=== PATIENT | male | born 1955 | race Caucasian/White ===

== ENCOUNTER 2019-05-15 14:07 | Inpatient (IN) | payer MEDICARE ==
--- NOTE | 2019-05-15 14:27 | ED ---
Neurological HPI - HPI Summary HPI Summary: This patient is a 63 year old M transferred from [place] ED presenting to [facility] with a chief complaint of frequent falls and unbalanced gait since at 1421, per triage. Pt reports 3 falls in the evening in the bathroom and trouble sitting up right. Patient reports MS (since 1997) for which he takes Tecfidera and Zoloft for and unsteady gait with many falls. Pt reports balance has worsened the last couple of days though at baseline he can walk unassisted w walker. Denies significant muscular issues due to MS. Dr. Galvan is neurologist. Denies weakness in legs but feels off balance/ataxic. - History of Current Complaint Chief Complaint: EDNeurologicalDeficit Stated Complaint: NEURO FOR MS PER EMS Time Seen by Provider: 05/15/19 14:09 Hx Obtained From: Patient Onset/Duration: Started days ago, Still Present Timing: Constant Pain Intensity: 0 Pain Scale Used: 0-10 Numeric Aggravating: Nothing Alleviating: Nothing Associated Signs and Symptoms: Positive: Unsteady Gait, Weakness - falls, trouble sitting up right; denies weakness in legs - Allergy/Home Medications Allergies/Adverse Reactions: Allergies Allergy/AdvReac Type Severity Reaction Status Date / Time haloperidol [From Haldol] Allergy See Comment Verified 05/15/19 14:23 Home Medications: Home Medications Dimethyl Fumarate(NF) [Tecfidera(NF)] 240 mg PO BID 05/15/19 [History Confirmed 05/15/19] Sertraline* [Zoloft*] 100 mg PO DAILY 05/15/19 [History Confirmed 05/15/19] PMH/Surg Hx/FS Hx/Imm Hx Endocrine/Hematology History: Denies: Hx Diabetes Cardiovascular History: Denies: Hx Hypertension, Hx Pacemaker/ICD History: Denies: Hx Dialysis, Hx Renal Disease Sensory History: Denies: Hx Hearing Aid Neurological History: Reports: Other Neuro Impairments/Disorders - MS Psychiatric History: Denies: Hx Panic Disorder - Surgical History Surgery Procedure, Year, and Place: TONSILECTOMY-as a child; APPENDECTOMY-1960s , [facility] Infectious Disease History: No Infectious Disease History: Denies: Traveled Outside the [place] in Last 30 Days - Family History Known Family History: Negative: Hypertension, Diabetes - Social History Alcohol Use: None Hx Substance Use: No Substance Use Type: Reports: None Hx Tobacco Use: No Smoking Status (MU): Never Smoked Tobacco Review of Systems Positive: Other - denies weakness in legs Neurological: Other - frequent falls, unsteady gait, trouble sitting up right All Other Systems Reviewed And Are Negative: Yes Physical Exam - Summary Physical Exam Summary: Constitutional: Well-developed, Well-nourished, Alert. (-) Distressed Skin: Warm, Dry HENT: Normocephalic; Atraumatic Eyes: Conjunctiva normal Neck: Musculoskeletal ROM normal neck. (-) JVD, (-) Nuchal rigidity Cardio: Rhythm regular, tachycardia, Heart sounds normal; Intact distal pulses; Radial pulses are 2+ and symmetric. (-) Murmur Pulmonary/Chest wall: Effort normal. (-) Respiratory distress, (-) Wheezes, (-) Rales Abd: Soft. (-) Tenderness, (-) Distension, (-) Guarding, (-) Rebound Musculoskeletal: (-) Edema Lymph: (-) Cervical adenopathy Neuro: Alert, PERRL, Oriented x3, Strength normal, Cranial nerves II-XII are grossly intact. SILT, Strength 5/5 BUE and BLE, (-) Dysmetria, (-) Nystagmus, choreiform movements, gait deferred Psych: Mood and affect Normal Triage Information Reviewed: Yes Vital Signs On Initial Exam: Initial Vitals Temp Pulse Resp BP Pulse Ox 100.0 F 107 23 139/75 96 05/15/19 14:19 05/15/19 14:19 05/15/19 14:19 05/15/19 14:19 05/15/19 14:19 Vital Signs Reviewed: Yes Procedures - Sedation Patient Received Moderate/Deep Sedation with Procedure: No Diagnostics - Vital Signs Vital Signs Temp Pulse Resp BP Pulse Ox 05/15/19 14: 100.0 F 107 23 139/75 96 - Laboratory Result Diagrams: 05/15/19 14:37 05/15/19 14:38 Lab Statement: Any lab studies that have been ordered have been reviewed, and results considered in the medical decision making process. - Radiology Brain MRI Radiology Interpretation Completed By: Radiologist Summary of Radiographic Findings: Per radiologist,. 1. DIFFUSE INVOLUTIONAL CHANGE. 2. AGAIN NOTED IS MULTIFOCAL ELEVATED T2/FLAIR SIGNAL IN THE PERIVENTRICULAR AND. SUBCORTICAL WHITE MATTER CONSISTENT WITH DEMYELINATING PLAQUE GIVEN HISTORY OF MULTIPLE. SCLEROSIS. 3. THERE IS NO ABNORMAL ENHANCEMENT TO SUGGEST ACTIVE INFLAMMATION. 4. THERE HAS BEEN NO SIGNIFICANT CHANGE COMPARED TO DECEMBER 08, 2012. ED physician has reviewed this imaging report. Re-Evaluation - Re-Evaluation First Eval Re-Evaluation Time: 16:29 Comment: Dr. Davis in ED to see patient. Course/Dx - Course Course Of Treatment: 63-year-old male history of multiple sclerosis transfer from [place] for concern for MS flare. - Per neurology, check MRI brain. Will check basic labs, give fluids for mild tachycardia and reassess. Likely to be admitted for MS flare - Diagnoses Provider Diagnoses: Exacerbation of multiple sclerosis - Physician Notifications Discussed Care Of Patient With: Dustin Davis Time Discussed With Above Provider: 14:27 Instructed by Provider To: Other - 1427: Susan: is aware of patient and recommends MRI. 1629: Susan: Dr. Santana is in ED to check in on patient. 1758: Susan: called requesting pt be given 1000 mg of solumedrol, daily for 3 days and first dose will be given in ER. Discharge ED - Sign-Out/Discharge Documenting (check all that apply): Patient Departure - admit - Discharge Plan Condition: Stable Disposition: ADMITTED TO [facility] - Billing Disposition and Condition Condition: STABLE Disposition: Admitted to [facility] - Attestation Statements Document Initiated by Sushmaibe: Yes Documenting Scribe: Maite Best Provider For Whom Becky is Documenting (Include Credential): Dr. Bony Lua MD Scribe Attestation: IMaite, scribed for Dr. Bony Lua MD on 05/16/19 at 0705. Scribe Documentation Reviewed: Yes Provider Attestation: The documentation as recorded by the Maite garcia accurately reflects the service I personally performed and the decisions made by me, Dr. Bony Lua MD Status of Scribe Document: Viewed
[2019-05-15] MEDS ORDERED: NS 0.9% 1000 ML** 1,000 ML IV ONE (14:29)
[2019-05-15 15:11] LABS: Albumin 4.3 g/dL (3.2-5.2); Albumin/Globulin Ratio 1.6 (1-3); BUN/Creatinine Ratio 13.3 (8-20); Calcium 9.1 mg/dL (8.6-10.3); EGFR African American 86.9 (>60); EGFR Non-African American 71.8 (>60); Globulin 2.7 g/dL (2-4); Potassium 3.8 mmol/L (3.5-5.0); Total Bilirubin 0.4 mg/dL (0.2-1.0)
[2019-05-15 15:25] LABS: ABS Lymphocytes 0.5 10^3/ul (1.0-4.8); ABS Monocytes 0.7 10^3/ul (0-0.8); ABS Neutrophils 6.9 10^3/ul (1.5-7.7); Eosinophil % 0.6 %; Hematocrit 42 % (42-52); Hemoglobin 14.4 g/dL (14.0-18.0); Lymphocyte % 6.3 %; Mean Corpuscular HGB Conc 34 g/dL (31-36); Mean Corpuscular Hemoglobin 30 pg (27-31); Mean Corpuscular Volume 87 fL (80-94); Mean Platelet Volume 10.6 fL (7.4-10.4); Nucleated Red Blood Cells % 0.1; Platelet Count 189 10^3/uL (150-450); Red Blood Count 4.84 10^6 /uL (4.18-5.48); Red Cell Distribution Width 14 % (10-15); White Blood Count 8.2 10^3/uL (3.5-10.8)
--- OUTSIDE RECORDS SUMMARY | 2019-05-15 15:26 | XMS REPORT | Continuity of Care Document ---
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 [phone] Care 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 [phone] Mras Galvan MD - Neurology Care 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 Problems Active Problems Provider Date Retention of urine Petra Gray MD Onset: 10/15/2013 Multiple sclerosis Petra Gray MD Onset: 05/22/2010 Constipation Petra Gray MD Onset: 05/22/2010 Anxiety state Petra Gray MD Onset: 05/22/2010 Glaucoma Petra Gray MD Onset: 08/02/2014 Vitamin D deficiency Petra Gray MD Onset: 10/17/2017 Social History Type Date Description Comments Sex Unknown Tobacco Use Start: Unknown Never Smoked Cigarettes Smoking Status Reviewed: 04/22/19 Never Smoked Cigarettes ETOH Use Denies alcohol use Tobacco Use Start: Unknown Patient has never smoked Allergies, Adverse Reactions, Alerts Active Allergies Reaction Severity Comments Date Haloperidol 07/14/2014 Haldol 10/13/2014 Medications Active Medications SIG Qnty Indications Ordering Date Provider [facility] Bacitracin apply to wound 28gm S01.00xA Petra Gray, 04/07/2019 500Unit/GM on forehead Ointment twice daily x 1 week Baclofen 1 tab by mouth 2 180tabs G35 Perta Gray, 11/12/2018 5mg Tablets times a day Acetaminophen one by mouth 60tabs Z00.00 Petra Gray, 10/20/2018 500mg every 6 hrs. as MD Tablets needed Docusate Sodium take three 100caps Petra Gray, 05/14/2018 100mg capsules by Capsules mouth every morning Claritin 1 by mouth daily 90tabs Petra Gray, 12/08/2014 10mg Tablets as needed Docqlace take three 150caps Petra Gray, 11/02/2014 100mg Capsules capsules by mouth every morning and 2 at night Fiber-Lax take 3 tablets 120tabs Petra Gray, 09/16/2014 625mg Tablets by mouth every MD day and 1 at at bedtime Baclofen take 1/2 tablet 90tabs M81.0 Petra Gray, 11/16/2013 10mg Tablets by mouth two MD times a day & 2 tablets at bedtime G35 Sertraline HCL take one tablet by 90tabs F41.9 Petra Gray MD 2011 100mg mouth every day Tablets F41.1 Tecfidera 1 po bid Unknown 240mg Capsules DR Caldwell 1PO Q Evening And A 5 135tabs Sheldon Navas MD 10mg Tablets MG AT hs Vitamin D3 take two tablets by 360tabs Petra Gray MD 1000Unit Tablets mouth every day Genteal Tears instill 1 drop into Unknown 0.1-0.3% both eyes twice daily Solution as needed for dry eye & may self-administer Ibuprofen 1 tab by mouth every Unknown 400mg Tablets 8 hour as needed pain or fever Immunizations CPT Code Status Date Vaccine Reaction Lot # [id number] Given 04/07/2019 Tdap (Adacel) Ages 7 And [id number] Above Only Q2039 Given 03/15/2019 Flu Vaccine NOS 55654 Given 03/15/2019 Influenza Virus Vaccine,Quadrivalent,Split,Pr eserv Free, 0.5mL,Im Q2035 Given 03/17/2018 Afluria Imunization Given at [facility],Rte 222 [address]66 Given 03/17/2018 Afluria Or Fluvirin Flu Vac Intramuscular Q2035 Given 03/17/2017 Afluria Imunization Given At Pharmacy, Negative, 0mm Q2037 Given 04/19/2016 Fluvirin Immunization Q2039 Given 03/24/2015 Flu Vaccine NOS 29159 Given 03/25/2014 Afluria Or Fluvirin Flu Vac Intramuscular 15761 Given 04/30/2013 Afluria Or Fluvirin Flu Vac Intramuscular 24467 Given 12/30/2012 Pneumococcal 23 Immunization Adult Or Immunosuppressed Patient 48584 Given 03/03/2012 Afluria Or Fluvirin Flu Vac VIS DATE 01/06/12 Intramuscular 33544 Given 03/29/2011 Afluria Or Fluvirin Flu Vac Intramuscular 57922 Given 05/11/2010 Afluria Or Fluvirin Flu Vac Intramuscular 46551 Given 05/09/2008 Afluria Or Fluvirin Flu Vac Intramuscular 69915 Given 04/17/2007 Afluria Or Fluvirin Flu Vac Intramuscular 05957 Given 09/26/2006 Tetanus And Diptheria Toxoid 7 Years And Older Preserv Free 35085 Given 05/01/2005 Afluria Or Fluvirin Flu Vac Intramuscular 92091 Given 05/15/2004 Afluria Or Fluvirin Flu Vac Intramuscular 26694 Given 05/17/2003 Afluria Or Fluvirin Flu Vac Intramuscular 97682 Refused 04/20/2018 Shingrix (Shingles) Zoster Vaccine HZV, Recombinant , Subunit, Adj Vital Signs Date Vital Result Comment 04/22/2019 1:21pm Weight 214.00 lb Height 70 inches 5'10" 5'10 BMI (Body Mass Index) 30.7 kg/m2 04/07/2019 9:46am Weight 212.00 lb Heart Rate 98 /min BP Systolic 124 mmHg BP Diastolic 76 mmHg Respiratory Rate 18 /min Height 70 inches 5'10" 5'10 O2 % BldC Oximetry 99 % Ra BMI (Body Mass Index) 30.4 kg/m2 Results Test Date Facility Test Result H/L Range Note CBS 04/14/2019 [facility] White Blood 4.7 K/uL Normal 3.4-10.5 1 W/Automated (315)- - Count Diff Red Blood Count 4.93 M/uL Normal 4.20-5.80 Hemoglobin 14.4 gm/dL Normal 12.8-17.0 Hematocrit 43.3 % Normal 38.0-48.0 Mean Cell Volume 87.8 fl Normal 80.0-96.0 Mean Corpuscular HGB 29.2 pg Normal 27.0-33.0 Mean Corpuscular HGB Conc 33.3 g/dL Normal 31.7-36.0 Platelet Count 220 K/uL Normal 155-360 Red Cell Distri Width SD 41.9 fl Normal 36-51 Red Cell Distri Width %CV 13.1 % Normal 11.6-15.8 Mean Platelet Volume 12.5 fl High 6.6-10.6 Neut% 69.7 % Normal 33.0-73.0 Lymph % 15.6 % Low 20.0-42.0 Pecos % 8.8 % Normal 0.0-10.0 Eo% 5.1 % Normal 0.0-6.6 Bas% 0.6 % Normal 0.0-1.1 Immature Grans 0.2 % Normal 0.0-5.0 NRBC % 0.0 /100WBC < 10/ 100 WBC Neut# 3.25 K/uL Normal 1.8-7.0 Lymph # 0.73 K/uL Low 1.0-4.0 Pecos # 0.41 K/uL Normal 0.0-0.8 Eos # 0.24 K/uL Normal 0.0-0.5 Baso # 0.03 K/uL Normal 0.0-0.1 Immature Grans Absolute 0.01 K/uL NRBC # 0.00 K/uL [facility] 04/14/2019 [facility] Glucose 100 mg/dL Normal 74-106 Metabolic Panel (315)- - BUN 14 mg/dL Normal 7-18 Creatinine 1.0 mg/dL Normal 0.6-1.3 Glom Filtration Rate, Estimate >60 mL/min >60 If >60 mL/min >60 2 BUN/Creat 14.0 ratio Sodium 139 mmol/L Normal 136-145 Potassium 4.1 mmol/L Normal 3.5-5.1 Chloride 108 mmol/L High 98-107 Carbon Dioxide 26 mmol/L Normal 21-32 Anion Gap 5 mEq/L Low 8-16 Calcium 8.9 mg/dL Normal 8.5-10.1 Total Protein 7.5 g/dL Normal 6.4-8.2 Albumin 4.1 g/dL Normal 3.4-5.0 Globulin 3.4 g/dL Normal 1.9-4.3 Alb/Glob 1.2 ratio Bilirubin,Total 0.4 mg/dL Normal 0.2-1.0 Sgot/Ast 13 U/L Low 15-37 3 SGPT/Alt 36 U/L Normal 12-78 Alkaline Phosphatase 54 U/L Normal 45-117 LDL Cholesterol 04/14/2019 [facility] Cholesterol 174 mg/ dL <200 4 Profile (315)- - Triglycerides 126 mg/dL <150 5 HDL Cholesterol 42 mg/dL >40 6 LDL-Cholesterol 107 mg/dL < 100 7 Laboratory test 04/14/2019 [facility] Thyroid Stim 3.04 uIU/mL Normal 0.30-4.20 finding (315)- - Hormone Laboratory test 04/14/2019 [facility] Vitamin 39.9 ng/mL 30.0-100.0 8 finding (315)- - D,25-Hydroxy 1 F41.1 2 Note: Persistent reduction for 3 months or more in an eGFR <60 mL/min/1.73 m2 defines CKD. Patients with eGFR values >/=60 mL/min/1.73 m2 may also have CKD if evidence of persistent proteinuria is present. The original MDRD equation for estimated GFR is not valid for patients less than 18 years of age. Additional information may be found at www.kdoqi.org. 3 Values below the stated reference ranges of AST and ALT can be seen in normal populations. Clinical correlation is suggested. 4 Reference Guidelines*: Desirable: ........... < 200 mg/dL Borderline High: ..... 200-239 mg/dL High: ................ >= 240 mg/dL * The National Cholesterol Education Program (NCEP) 5 Reference Guidelines*: Normal: ............. < 150 mg/dL Borderline High: .... 150-199 mg/dL High: ............... 200-499 mg/dL Very High: .......... > 500 mg/dL * Source: National Cholesterol Education Program (NCEP) 6 Reference Guidelines*: Low HDL: ..... < 40 mg/dL Normal: ..... 40-60 mg/dL Desirable: ... > 60 mg/dL *The National Cholesterol Education Program(NCEP) 7 Reference Guidelines*: Optimal:........... <100 mg/dL Near Optimal....... 100-129 mg/dL Borderline High.... 130-159 mg/dL High............... 160-189 mg/dL Very High.......... >=190 mg/dL * Source: National Cholesterol Education Program (NCEP) 8 Vitamin D deficiency has been defined by the [place] of [employer] and an Endocrine Society practice guideline as a level of serum 25-OH vitamin D less than 20 ng/mL (1,2). The Endocrine Society went on to further define vitamin D insufficiency as a level between 21 and 29 ng/mL (2). 1. IOM ([place] of [employer]). 2010. Dietary reference intakes for calcium and D. [place]: The National Academies Press. 2. Ingris MF, Flynn PATTERSON, Matthew JUNG, et al. Evaluation, treatment, and prevention of vitamin D deficiency: an Endocrine Society clinical practice guideline. JCEM. 2010; 96(7):1911-30. Performed at: RN - [facility] [address] [id number] Coding Support Specialist: Alana Diallo MD, Phone: [phone] Procedures Date Code Description Status 11/06/2017 80004408 Colonoscopy Completed Medical Devices Description No Information Available Encounters Type Date Location Provider Dx Diagnosis Office Visit 04[facility] Pet[facility] MD S01.00xA Unspecified open 9:45a wound of scalp, initial encounter Z23 Encounter for immunization Assessments Date Code Description Provider 04/22/2019 E66.9 Obesity, unspecified Petra Gray MD 04/22/2019 G35 Multiple sclerosis Petra Gray MD 04/22/2019 R33.9 Retention of urine, unspecified Petra Gray MD 04/22/2019 K59.00 Constipation, unspecified Petra Gray MD 04/22/2019 F41.1 Generalized anxiety disorder Petra Gray MD 04/22/2019 H40.9 Unspecified glaucoma Petra Gray MD 04/22/2019 E55.9 Vitamin D deficiency, unspecified Petra Gray MD 04/22/2019 Z68.30 Body mass index (BMI) 30.0-30.9, adult Petra Gray MD 04/07/2019 S01.00xA Unspecified open wound of scalp, initial Petra Gray MD encounter 04/07/2019 Z23 Encounter for immunization Petra Gray MD Plan of Treatment Future Appointment(s):10/26/2019 2:30 pm - [facility] - Petra Gray MDE66.9 Obesity, unspecifiedComments:encourage healthy moderate diet and exercise.G35 Multiple sclerosisComments:Dr. Galvan is following this. Continue current medicationFollow up:6-months MEDICARE WELLNESS EXAM and follow up with non-fasting labs prior.R33.9 Retention of urine , unspecifiedNew Labs:Prostate Specific Antigen, Scheduled: 10/17/19Comments:He self-catheterizes 4 times daily.K59.00 Constipation, unspecifiedComments:No problem at this time. Continue current medication.F41.1 Generalized anxiety disorderComments:This is well controlled with the use of sertraline with benefit. Continue with this.H40.9 Unspecified glaucomaComments:Dr. Bowen is watching his pressure. She does not think he is having any symptoms at this time.E55.9 Vitamin D deficiency, unspecifiedComments:continue obfxklsrovJ77.30 Body mass index (BMI) 30.0-30.9, adultComments:The BMI is the ratio of height to weight. Weight loss is desirable. Your goal BMI is between 18.9 and 25. Your are overweight. Work on improving your diet to help with weight loss. Functional Status Functional Condition Comment Date Status Independent with all ADL's Active Dependent with housekeeping Active Mental Status Description No Information Available Referrals Description No Information Available
--- OUTSIDE RECORDS SUMMARY | 2019-05-15 15:26 | XMS REPORT | Continuity of Care Document ---
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 as MD Tablets needed Docusate Sodium Take Three 100caps Petra Gray, 05/14/2018 100mg Capsules By MD Capsules Mouth Every Morning Claritin 1 by mouth daily 90tabs Petra Gray, 12/08/2014 10mg Tablets as needed Docqlace take three 150caps Petra Gray, 11/02/2014 100mg Capsules capsules by mouth every morning and 2 at night Fiber-Lax take 3 tablets 120tabs Petra Gray, 09/16/2014 625mg Tablets by mouth every MD day and 1 at at bedtime Baclofen Take 1/2 Tablet 90tabs M81.0 Petra Gray, 11/16/2013 10mg Tablets By Mouth Two MD Times A Day & 2 Tablets AT Bedtime G35 Sertraline HCL take one tablet by 30tabs Petra Gray MD 03/20/2012 100mg Tablets mouth every day Tecfidera 1 po bid Unknown 240mg Capsules [...] Code Status Date Vaccine Reaction Lot # [id number] Given 04/07/2019 Tdap (Adacel) Ages 7 And [id number] Above Only Q2039 Given 03/15/2019 Flu Vaccine NOS 57029 Given 03/15/2019 Influenza Virus Vaccine,Quadrivalent,Split,Pr eserv Free, 0.5mL,Im Q2035 Given 03/17/2018 Afluria Imunization Given at [facility],Rte 222 [address] Given 03/17/2018 Afluria Or Fluvirin Flu Vac Intramuscular Q2035 Given 03/17/2017 Afluria Imunization Given At Pharmacy, Negative, 0mm Q2037 Given 04/19/2016 Fluvirin Immunization Q2039 Given 03/24/2015 Flu Vaccine NOS 13621 Given 03/25/2014 Afluria Or Fluvirin Flu Vac Intramuscular 63417 Given 04/30/2013 Afluria Or Fluvirin Flu Vac Intramuscular 41648 Given 12/30/2012 Pneumococcal 23 Immunization Adult Or Immunosuppressed Patient 15964 Given 03/03/2012 Afluria Or Fluvirin Flu Vac VIS DATE 01/06/12 Intramuscular 61773 Given 03/29/2011 Afluria Or Fluvirin Flu Vac Intramuscular 12271 Given 05/11/2010 Afluria Or Fluvirin Flu Vac Intramuscular 16083 Given 05/09/2008 Afluria Or Fluvirin Flu Vac Intramuscular 14952 Given 04/17/2007 Afluria Or Fluvirin Flu Vac Intramuscular 13858 Given 09/26/2006 Tetanus And Diptheria Toxoids For Adult Use-preservative free 98261 Given 05/01/2005 Afluria Or Fluvirin Flu Vac Intramuscular 65946 Given 05/15/2004 Afluria Or Fluvirin Flu Vac Intramuscular 36092 Given 05/17/2003 Afluria Or Fluvirin Flu Vac Intramuscular 38499 Refused 04/20/2018 Shingrix (Shingles) Zoster Vaccine HZV, Recombinant , Subunit, Adj Vital Signs Date Vital Result Comment 04/07/2019 9:46am Weight 212.00 lb Heart Rate 98 /min BP Systolic 124 mmHg BP Diastolic 76 mmHg Respiratory Rate 18 /min Height 70 inches 5'10" 5'10 O2 % BldC Oximetry 99 % Ra BMI (Body Mass Index) 30.4 kg/m2 10/20/2018 1:48pm Weight 221.00 lb Heart Rate 72 /min BP Systolic 126 mmHg BP Diastolic 72 mmHg Respiratory Rate 18 /min Height 70 inches 5'10" 5'10 O2 % BldC Oximetry 97 % Ra BMI (Body Mass Index) 31.7 kg/m2 Results Description No Information Available Procedures Date Code Description Status 11/06/2017 23560900 Colonoscopy Completed Medical Devices Description No Information Available Encounters Type Date Location Provider Dx Diagnosis Office Visit 10/20/2018 1:30p [facility] Pet[facility] MD E66.9 Obesity, unspecified Z00.00 Encntr for general adult medical exam w/o abnormal findings Z13.31 Encounter for screening for depression G35 Multiple sclerosis R33.9 Retention of urine, unspecified K59.00 Constipation, unspecified F41.1 Generalized anxiety disorder H40.9 Unspecified glaucoma E55.9 Vitamin D deficiency, unspecified Z68.31 Body mass index (BMI) 31.0-31.9, adult Assessments Date Code Description Provider 04/07/2019 S01.00xA Unspecified open wound of scalp, initial Petra Gray MD encounter 04/07/2019 Z23 Encounter for immunization Petra Gray MD 10/20/2018 E66.9 Obesity, unspecified Petra Gray MD 10/20/2018 Z00.00 Encounter for general adult medical Petra Gray MD examination without abno 10/20/2018 Z13.31 Encounter for screening for depression Petra Gray MD 10/20/2018 G35 Multiple sclerosis Petra Gray MD 10/20/2018 R33.9 Retention of urine, unspecified Petra Gray MD 10/20/2018 K59.00 Constipation, unspecified Petra Gray MD 10/20/2018 F41.1 Generalized anxiety disorder Petra Gray MD 10/20/2018 H40.9 Unspecified glaucoma Petra Gray MD 10/20/2018 E55.9 Vitamin D deficiency, unspecified Petra Gray MD 10/20/2018 Z68.31 Body mass index (BMI) 31.0-31.9, adult Petra Gray MD Plan of Treatment Future Appointment(s):04/22/2019 1:15 pm - [facility] - Petra Gray MDS01.00xA Unspecified open wound of scalp, initial encounterNew Medication:[facility] Bac[facility] 500 Unit/GM - apply to wound on forehead twice daily x 1 weekComments:suspect minor trauma to skin. He will apply bacitracin ointment to wound on forehead twice a day for 1 week. given tetanus shot today. call if not improving or if symptoms worsen.Follow up:Follow up as scheduled.Z23 Encounter for immunization Functional Status Functional Condition Comment Date Status Independent with all ADL's Active Dependent with housekeeping Active Mental Status Description No Information Available Referrals Description No Information Available
[2019-05-15] MEDS ORDERED: Gadoteridol* (CONTRAST) 279.3 MG/ML 10 ML IV ONE (15:59)
[2019-05-15] MEDS ORDERED: methylPREDNISolone SOD SUCC* 1,000 MG in NS 0.9% 100 ML* 100 ML IVPB ONE (17:52)
[2019-05-15] MEDS ORDERED: methylPREDNISolone SOD SUCC* 1000 MG ML VIAL ONE (18:27)
--- NOTE | 2019-05-15 19:30 | CONS ---
CONSULTATION REPORT: DATE OF CONSULT: 05/15/19 PATIENT OF: Dr. Petra Gray and Dr. Mars Galvan. HISTORY OF PRESENT ILLNESS: This is a 63-year-old man with longstanding multiple sclerosis first diagnosed by Dr. Slaughter in 1991. He has transverse myelitis and received intravenous steroids early on in his course and he had an MRI scan, which made a positive diagnosis. He was initially on Avonex and switched to Rebif and then to Tecfidera in 2013 and he has been on Tecfidera since then and he has clinically done well. He has no recent relapses for many years. He uses a walker and he says that due to his instability falls roughly twice a year. He has become significantly more ataxic including with titubation and having difficulty sitting in the past 3 days' time. He has fallen 2 or 3 times in the past 3 days. His speech is typically mildly slurred , but it is more slurred than before. He has had no headaches. No visual symptoms. No fevers. I reviewed Dr. Galvan's note from May 2018. At that time, he had bilateral INOs as well as ataxia and brisk reflexes and was able to walk with a walker. Of note, no JCV antibody testing has been done on this man. His last MRI scan was done in 2012 prior to today. He has had no new numbness either. PAST MEDICAL HISTORY: He has a history of depression. PAST SURGICAL HISTORY: He is status post tonsillectomy, adenoidectomy. MEDICATIONS: Include: 1. Zoloft 100 mg daily. 2. Tecfidera 240 b.i.d. There are no other medications. ALLERGIES: He is allergic to HALOPERIDOL. SOCIAL HISTORY: He does not smoke or drink. PHYSICAL EXAM: Temperature 100, pulse 107, respirations 20, blood pressure 129/ 73. He is alert and oriented with slurred speech, but no aphasia. Cranial nerves II through XII showed bilateral internuclear ophthalmoplegia. Facies symmetric. Strength was 5/5 other than 5-/5 in the dorsiflexion and plantarflexion of the left leg. He says his strength is unchanged. He has bilateral past-pointing, bilateral ataxia in both legs. He says that this is clearly worse. He has titubation and has difficulty sitting up and when we got him to stand using a walker he still needed 2-person assist to prevent him from falling. He has diffuse spasticity. Reflexes were 3+ and equal. Toes were equivocal. Sensation intact to light touch. Chest: Clear. Cardiovascular: Regular rate and rhythm. Abdomen is soft with positive bowel sounds. DIAGNOSTIC STUDIES/LAB DATA: CBC showed a white count of 8.2, but total lymphocyte count is just 0.5. Other testing was normal. His CMP was normal other than glucose of 102. His MRI scan which we obtained today showed no new white matter disease and has a pattern of white matter disease including corpus callosum lesions that appear old without any enhancement and are consistent with his old MS. I looked at the more recent study. Dr. Trinh compared it to the prior study of 2013 and there was no interval change. IMPRESSION AND PLAN: Mr. Knight most likely has had a flare of his multiple sclerosis that is disabling and we will be admitting him to the hospital. I will touch base with a multiple sclerosis specialist. There is a risk of progressive multifocal leukoencephalopathy in somebody on Tecfidera especially longstanding and his lymphocyte count is low. I do not know if we do not know the JATIN virus antibody studies what the risk is if we add steroids and I would like to find that out before I prescribe the steroids. This has been going on for 3 days' time, so I will be trying to reach a doctor at [place]. I have spoken to Dr. Baron about this case. Thank you for sharing his care. [id number]/[facility] #: [id number] [facility]
--- NOTE | 2019-05-15 22:05 | HP ---
HISTORY AND PHYSICAL: DATE OF ADMISSION: 05/15/19 PRIMARY CARE PROVIDER: Petra Gray MD OTHER PROVIDER: Mars Galvan MD ATTENDING PHYSICIAN: Almita Kim MD * (dictated by NORI Mcclain) . CHIEF COMPLAINT: 1. "Problems walking, balancing." 2. Fall. HISTORY OF PRESENT ILLNESS: Mr. Knight is a 63-year-old male with past medical history of multiple sclerosis and depression, who presented to the ER today with complaints of difficulty with ambulation, instability, and frequent falls x2 to 3 days. The patient states that he has fallen approximately 3 times in the last 1 week. He denies changes in vision, headache, or neck pain. He denies injury to the head or neck. He denies difficulty with swallowing, but does note a mild change in his speech, describing it as slurred and slow. He denies chest pain, shortness of breath, cough, fevers, chills. He typically walks at home with a walker without much difficulty, but again has been having difficulty with this recently. He follows outpatient with Dr. Galvan. He takes Tecfidera 240 mg p.o. b.i.d. for MS. In the ER, the patient received a full workup including CBC and CMP without gross abnormalities. A brain MRI was performed and showed diffuse involutional changes as well as elevated T2 suggestive of demyelinating plaque and no significant changes since December 2012. In the ER, the patient received methylprednisolone 1000 mg IV, normal saline 1 L IV. Hospitalist team was asked to evaluate the patient for admission. PAST MEDICAL HISTORY: 1. Multiple sclerosis. 2. Depression. PAST SURGICAL HISTORY: 1. Tonsillectomy. 2. Appendectomy. 3. Three to four moles resected. HOME MEDICATIONS: 1. Sertraline 100 p.o. daily. 2. Tecfidera 240 mg p.o. daily. DRUG ALLERGIES: HALOPERIDOL. FAMILY HISTORY: Mother of breast cancer. Father had an autoimmune disease. No family history of diabetes mellitus, heart disease, or CVA. SOCIAL HISTORY: The patient denies current or former use of tobacco. He does not use alcohol or illicit drugs. 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 He lives at [facility]. In the event that he is unable to make his own medical decisions, he has appointed his sister, Elaine Beltran to be his surrogate decision maker. REVIEW OF SYSTEMS: A 14-point review of systems has been performed and all the pertinent positives and negatives are in the HPI. All other systems are negative. PHYSICAL EXAMINATION GENERAL: Mr. Knight is a well-developed, well-nourished, obese, middle- aged white male, who is sitting up in bed. He appears comfortable and in no acute distress. VITAL SIGNS: Temperature 100.0 temporal, heart rate 107, respiratory rate 23, oxygen saturation 93% on room air, blood pressure 139/75. HEENT: Visual galaviz are grossly intact. Pupils are equally round and reactive to light. Extraocular movements intact. There is no scleral icterus. Hearing is grossly intact. Oral mucous membranes are moist. There are no lesions. The pharynx is clear without exudate or erythema. Tongue is at midline. Palate elevates symmetrically. RESPIRATORY: Symmetrical chest expansion without use of accessory muscles. Clear to auscultation bilaterally without rhonchi, wheezes, or rubs. CARDIOVASCULAR: Regular rate and rhythm with S1, S2 present without murmurs, rubs, clicks, or gallops. There is no JVD. There is no peripheral edema. ABDOMEN: Obese. Bowel sounds in all quadrants. Soft, nontender to palpation. NEURO: The patient is awake. He is alert and oriented x3. Cranial nerves II through XII are grossly intact. 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 Bilateral lower extremities with equal strength. He does appear to have some difficulty maintaining strength. He has slurred speech. DIAGNOSTIC STUDIES AND LABORATORY DATA: Labs, unremarkable. Brain MRI, diffuse involutional changes, again noted is multifocal elevated T2/ FLAIR signals in the periventricular and subcortical white matter consistent with demyelinating plaque given history of multiple sclerosis. There is no abnormal enhancement to suggest active inflammation. There has been no significant change compared to 12/08/12. ASSESSMENT AND PLAN: Mr. Knight is a 63-year-old male with past medical history of multiple sclerosis, depression, who presented to the ER with complaints of difficulty with ambulation, gait abnormalities, frequent falls. He will be admitted inpatient for: 1. Multiple sclerosis flare. The patient has increasing frequency of falls, difficulty with ambulation, gait instability. Neuro has been consulted and recommends Solu-Medrol 1000 mg IV x3 days. PT and OT have been ordered. Continue home medication, Tecfidera. 2. Depression. Continue home medication, sertraline. 3. DVT prophylaxis. According to DVT Risk Assessment, the patient scores 3, placing him at high risk. He will be started on Lovenox subcu. 4. Code status. Full code. TIME SPENT: Approximately 50 minutes were spent on this admission, greater than half of that time was spent [id number] with the patient obtaining history , performing physical, and reviewing the plan of care. The case has been reviewed with my attending, Dr. Kim, who is in agreement with the plan of care. NORI MCCLAIN [id number]/[facility] #: [id number] MTDD
[2019-05-15] MEDS: Enoxaparin(*) 40 MG/0.4 ML SYR SUBCUT SCH (23:38)
[2019-05-16] MEDS: Dimethyl Fumarate(NF) 240 MG CAP PO SCH ×3 (00:26→21:00)
[2019-05-16 05:22] LABS: Urine Appearance Clear; Urine Bacteria Absent (Absent); Urine Bilirubin Negative (Negative); Urine Blood 2+ (Negative); Urine Color Yellow; Urine Glucose Negative (Negative); Urine Ketones 1+ (Negative); Urine Nitrite Negative (Negative); Urine Protein Negative (Negative); Urine Red Blood Cell 3+(>10/hpf) (Absent); Urine Specific Gravity 1.011 (1.010-1.030); Urine Urobilinogen Negative (Negative); Urine White Blood Cell Absent (Absent)
[2019-05-16] MEDS: Sertraline* 100 MG TAB PO SCH (10:31)
--- NOTE | 2019-05-16 14:13 | PN ---
Subjective Date of Service: 05/16/19 Interval History: Mr. Knight states he is doing well today. He feels that his speech is improved and is more "fluid." He has been up with PT and walker today, and reports that this went well. He does use a walker at baseline. He notes that he usually straight caths QID at home. He has no other complaints today. Objective Active Medications: Dimethyl Fumarate (Tecfidera(Nf)) 240 mg PO BID [facility] Last Admin: 05/16/19 10:35 Dose: Not Given Enoxaparin Sodium (Lovenox(*)) 40 mg SUBCUT Q24H [facility] Last Admin: 05/15/19 23:38 Dose: 40 mg Methylprednisolone Sodium Succinate 1,000 mg/ Sodium Chloride 100 mls @ 0 mls/ hr IVPB 1800 [facility] Stop: 05/18/19 17:59 Sertraline HCl (Zoloft*) 100 mg PO DAILY [facility] Last Admin: 05/16/19 10:31 Dose: 100 mg Vital Signs: Temp Pulse Resp BP Pulse Ox 98.1 F 104 20 129/64 95 05/16/19 13:04 05/16/19 13:04 05/16/19 13:04 05/16/19 13:04 05/16/19 13:04 Oxygen Devices in Use Now: None Appearance: Mr. Knight is a middle-aged, obese white male who is sitting up in bed. He appears comfortable and in no acute distress. Eyes: No Scleral Icterus, PERRLA Ears/Nose/Mouth/Throat: NL Teeth, Lips, Gums, Clear Oropharnyx, Mucous Membranes Moist Neck: NL Appearance and Movements; NL JVP, Trachea Midline Respiratory: Symmetrical Chest Expansion and Respiratory Effort, Clear to Auscultation Cardiovascular: NL Sounds; No Murmurs; No JVD, RRR, No Edema Abdominal: NL Sounds; No Tenderness; No Distention, No Hepatosplenomegaly Extremities: No Edema, No Clubbing, Cyanosis Neurological: Alert and Oriented x 3, NL Muscle Strength and Tone, - - CN II- XII grossly intact Result Diagrams: 05/15/19 14:37 05/15/19 14:38 Assess/Plan/Problems-Billing Assessment: Mr. Knight is a 63 yom PMHx MS, neurogenic bladder, depression who presented to the ER with MS exacerbation. - Patient Problems (1) Multiple sclerosis exacerbation Comment: -MRI brain reveals no suggestion of active inflammation -neurology consulting; thank you for recommendations -JCV ab pending -continue IV solu-medrol 1000mg daily x3d -continue tecfidera (2) Neurogenic bladder Comment: -pt self-cath QID at home -continue QID self cath (3) Depression Comment: -continue home sertraline (4) DVT prophylaxis Comment: -Lovenox SQ (5) Full code status Status and Disposition: Inpatient. Plan for 3 doses of IV steroids, then likely d/c.
[2019-05-16] MEDS ORDERED: methylPREDNISolone SOD SUCC* 1,000 MG in NS 0.9% 100 ML* 100 ML IVPB SCH (14:45)
[2019-05-16] MEDS ORDERED: methylPREDNISolone SOD SUCC* 1,000 MG in NS 0.9% 100 ML* 100 ML IVPB ONE (15:30)
[2019-05-16] MEDS ORDERED: methylPREDNISolone SOD SUCC* 1,000 MG in NS 0.9% 250 ML* 250 ML IVPB SCH (18:00)
--- NOTE | 2019-05-16 18:13 | PN ---
PROGRESS REPORT: DATE OF VISIT: PATIENT OF: Dr. Galvan and Dr. Oliveira. HISTORY OF PRESENT ILLNESS: This is the followup of a 63-year-old with multiple sclerosis with significant recent ataxia. He notes that he feels better today with steroids. He is less ataxic and his speech is less slurred. He has been out of bed, walking with a walker and not in danger of falling. MEDICATIONS: Included Tecfidera, Lovenox, methylprednisone, and Zoloft. He is going to get his dose earlier today and then even a little bit earlier tomorrow. PHYSICAL EXAM: On exam, temperature 98.4, pulse 104, respirations 20, blood pressure 129/64. He is alert and oriented with speech normal, other than mild slurring, better than yesterday. He has his bilateral Is and Os. He is still ataxic, but this is clearly improved from yesterday and strength is intact. Chest: Clear. Cardiovascular: Regular rate and rhythm. IMPRESSION AND PLAN: I discussed his case yesterday with the covering neurologist at [place] because I was concerned they do not have a JATIN antibody titer and he has been on longstanding Tecfidera with decreased white count and there had been occasional cases of progressive multifocal leukoencephalopathy with Tecfidera. Given his significant worsening causing a significant decline in his ability to walk with his walker, we agreed that giving him a course of steroids would be the most appropriate thing. We discussed these issues with Mr. Hensley. He is pleased with how he is doing. I think he most likely will need just a 3-day course likely of Solu-Medrol, but I will have my partner stop by tomorrow to see how he does before presumably he goes home. Thank you for sharing his case. [id number]/[facility] #: [id number] [facility] HEALTHCAREBecky
[2019-05-16] MEDS: Calcium Polycarbophil TAB* 625 MG PO SCH (20:56)
[2019-05-16] MEDS: Enoxaparin(*) 40 MG/0.4 ML SYR SUBCUT SCH (20:56)
[2019-05-16] MEDS: Baclofen TAB* 10 MG PO SCH (20:56)
[2019-05-16] MEDS: Docusate CAP* 100 MG PO SCH (20:59)
[2019-05-17] MEDS: Calcium Polycarbophil TAB* 625 MG PO SCH ×2 (09:13→21:11)
[2019-05-17] MEDS: Docusate CAP* 100 MG PO SCH ×2 (09:13→21:11)
[2019-05-17] MEDS: Baclofen TAB* 10 MG PO SCH ×2 (09:14→21:11)
[2019-05-17] MEDS: Sertraline* 100 MG TAB PO SCH (09:15)
[2019-05-17] MEDS: Dimethyl Fumarate(NF) 240 MG CAP PO SCH ×2 (09:16→21:11)
[2019-05-17] MEDS ORDERED: methylPREDNISolone SOD SUCC* 1,000 MG in NS 0.9% 100 ML* 100 ML IVPB ONE (12:00)
[2019-05-17 12:09] LABS: TSH (Thyroid Stimulating Horm) 1.09 mcIU/mL (0.34-5.60)
[2019-05-17 12:11] LABS: Free T4 0.98 ng/dL (0.61-1.12)
--- NOTE | 2019-05-17 13:05 | PN ---
Subjective Date of Service: 05/17/19 Length of Stay: 2 Days Neurology is following for MS exacerbation. Interval History: He still has trouble ambulating independently but feels better than two days ago. He placed his knee brace on the right this morning and that has made a big difference. He is concerned about the multiple sclerosis progressing. He complains of memory problems and feels confused. He has trouble producing words. The cognitive symptoms have been ongoing for months. He denied any headaches, new visual disturbance, or swallowing impairment. He has chronic double vision and baseline bilateral INOs. B12: 311 Review of Systems: Denied CP, SOB, or palpitations. Objective Active Medications: Baclofen (Lioresal Tab*) 5 mg PO BID [facility] Last Admin: 05/17/19 09:14 Dose: 5 mg Calcium Polycarbophil (Fibercon Tab*) 625 mg PO BID [facility] Last Admin: 05/17/19 09:13 Dose: 625 mg Dimethyl Fumarate (Tecfidera(Nf)) 240 mg PO BID [facility] Last Admin: 05/17/19 09:16 Dose: Not Given Docusate Sodium (Colace Cap*) 100 mg PO BID [facility] Last Admin: 05/17/19 09:13 Dose: 100 mg Enoxaparin Sodium (Lovenox(*)) 40 mg SUBCUT Q24H [facility] Last Admin: 05/16/19 20:56 Dose: 40 mg Methylprednisolone Sodium Succinate 1,000 mg/ Sodium Chloride 100 mls @ 100 mls /hr IVPB ONCE ONE Stop: 05/17/19 12:59 Last Admin: 05/17/19 11:51 Dose: 100 mls/hr Sertraline HCl (Zoloft*) 100 mg PO DAILY [facility] Last Admin: 05/17/19 09:15 Dose: 100 mg Vital Signs 05/16/19 05/16/19 05/16/19 13:04 15:36 19:55 Temperature 98.1 F 97.4 F Pulse Rate 104 99 Respiratory 20 18 16 Rate Blood Pressure 129/64 136/65 (mmHg) O2 Sat by Pulse 95 93 Oximetry 05/16/19 05/16/19 05/17/19 20:12 23:58 03:30 Temperature 97.6 F 98.2 F 99.2 F Pulse Rate 103 95 102 Respiratory 16 18 18 Rate Blood Pressure 140/65 125/69 143/65 (mmHg) O2 Sat by Pulse 93 93 94 Oximetry 05/17/19 05/17/19 05/17/19 08:00 08:57 11:15 Temperature 98.6 F 97.8 F Pulse Rate 103 88 Respiratory 18 22 20 Rate Blood Pressure 134/73 126/70 (mmHg) O2 Sat by Pulse 93 98 Oximetry Intake and Output Last 24 Hours 05/15/19 05/16/19 05/17/19 05/18/19 06:59 06:59 06:59 06:59 Intake Total 1000 1187 360 Output Total 200 Balance 1000 987 360 Weight 210 lb 6.4 oz Intake: IV Fluids 1000 107 Soulmetrol 107 Oral 0 1080 360 Output: Urine 200 Oxygen Devices in Use Now: None Neurology Exam: General: Well nourished, well developed, and in no acute distress HEENT: Normocephelic/atraumatic, sclera anicteric, mucous membranes moist Neck: Supple Chest: Clear to auscultation bilaterally Cardiovascular: Regular rate and rhythm without murmurs, rubs, gallops Extremities: No clubbing, cyanosis, or edema Neurological Findings: Awake, alert, and oriented to person, place, and time. Speech: spastic dysarthria with word finding difficulty and moderate psychmotor slowing. Cranial Nerve: PERRL, bilateral MARCE. No facial asymmetry. Motor: 4/5 strength to hip flexors and 4+/5 to ankle dorsiflexion. 5/5 throughout. Sensation: intact to LT/PP bilaterally upper and lower extremities Deep Tendon Reflex: 3+ symmetric in the upper/lower extremities, Babinski - extensor plantar response Finger to nose, rapid alternating movements intact without tremor, no dysdiadochokinesia Gait: spastic gait. no ataxia. Required one person assist. Result Diagrams: 05/15/19 14:37 05/15/19 14:38 Assessment/Plan Mr. Willian Knight is a 63-year-old man with history of relapsing-remitting multiple sclerosis diagnosed in 1995, who sees Dr. Galvan, presented on 2018 with a 2-3 day history of gait imbalance and increase in falls. Neurological examination reveals proximal lower extremity weakness in an pyramidal distribution, diffuse hyperreflexia, and extensor plantar response. Intracranial imaging with MRI brain w/wo contrast showed diffuse periventricular white matter lesions with no evidence of new enhancing lesions. He has no evidence of any electrolyte imbalance or infectious etiology that explains his gait imbalance. The diagnosis here is probably MS exacerbation or progression of the multiple sclerosis. The fact he responded to steroids suggests some inflammatory changes that we cannot see on MRI. Albeit, the degree of brain atrophy for someone his age raises the concern for secondary progression of his MS. I have ordered an MRI of the cervical and thoracic spine to assess for any new demyelinating lesions, since the brain did not show any new changes that would correlate with his presentation. Since the patient has been treated for suspected MS flare, it would be appropriate to obtain those studies as an outpatient-especially if he is getting discharged today. He needs a sooner appointment with Dr. Galvan. I will arrange an appointment with our team. Continue Tecfidera as prescribed. We will closely monitor the lymphocyte count as an outpatient. Follow-up with the methylmalonic acid, and if elevated, start B12 supplements. I discussed fall precautions with the patient. Please contact us for any questions.
--- NOTE | 2019-05-17 14:22 | PN ---
Subjective Date of Service: 05/17/19 Interval History: Mr. Knight is feeling well today. He notes that he has his right leg brace in place, and this helps with balance and ambulation; he wears this chronically. He feels that his speech and ambulation have improved. He is concerned about discharge, as thinks he would benefit from rales on his bed at [facility], as well as increase in support. Discussed possibly going to [facility], and he will consider. He has no other complaints today. Objective Active Medications: Baclofen (Lioresal Tab*) 5 mg PO BID [facility] Last Admin: 05/17/19 09:14 Dose: 5 mg Calcium Polycarbophil (Fibercon Tab*) 625 mg PO BID [facility] Last Admin: 05/17/19 09:13 Dose: 625 mg Dimethyl Fumarate (Tecfidera(Nf)) 240 mg PO BID [facility] Last Admin: 05/17/19 09:16 Dose: Not Given Docusate Sodium (Colace Cap*) 100 mg PO BID [facility] Last Admin: 05/17/19 09:13 Dose: 100 mg Enoxaparin Sodium (Lovenox(*)) 40 mg SUBCUT Q24H [facility] Last Admin: 05/16/19 20:56 Dose: 40 mg Sertraline HCl (Zoloft*) 100 mg PO DAILY [facility] Last Admin: 05/17/19 09:15 Dose: 100 mg Vital Signs: Temp Pulse Resp BP Pulse Ox 97.8 F 88 20 126/70 98 05/17/19 11:15 05/17/19 11:15 05/17/19 11:15 05/17/19 11:15 05/17/19 11:15 Oxygen Devices in Use Now: None Appearance: Mr. Knight is a middle-aged white male who is sitting up in chair with LE at floor. He is resting comfortably, and appears to be in no acute distress. Eyes: No Scleral Icterus, PERRLA Ears/Nose/Mouth/Throat: NL Teeth, Lips, Gums, Clear Oropharnyx, Mucous Membranes Moist Neck: NL Appearance and Movements; NL JVP, Trachea Midline Respiratory: Symmetrical Chest Expansion and Respiratory Effort, Clear to Auscultation Cardiovascular: NL Sounds; No Murmurs; No JVD, RRR, No Edema Abdominal: NL Sounds; No Tenderness; No Distention, No Hepatosplenomegaly Extremities: No Edema, No Clubbing, Cyanosis, - - R leg brace in place Neurological: Alert and Oriented x 3, NL Muscle Strength and Tone Result Diagrams: 05/15/19 14:37 05/15/19 14:38 Assess/Plan/Problems-Billing Assessment: Mr. Knight is a 63 yom PMHx MS, neurogenic bladder, depression who presented to the ER with MS exacerbation. - Patient Problems (1) Multiple sclerosis exacerbation Comment: -MRI brain reveals no suggestion of active inflammation -neurology consulting; thank you for recommendations -JCV ab pending -continue IV solu-medrol 1000mg daily x3d -continue tecfidera, baclofen -MRI cervical, thoracic spine recommended, ordered (2) Neurogenic bladder Comment: -pt self-cath QID at home -continue QID self cath (3) Depression Comment: -continue home sertraline (4) DVT prophylaxis Comment: -Lovenox SQ (5) Full code status Status and Disposition: Inpatient. Plan for 3 doses of IV steroids, then likely d/c.
[2019-05-17] MEDS: Enoxaparin(*) 40 MG/0.4 ML SYR SUBCUT SCH (19:13)
[2019-05-18] MEDS: Baclofen TAB* 10 MG PO SCH (09:32)
[2019-05-18] MEDS: Sertraline* 100 MG TAB PO SCH (09:32)
[2019-05-18] MEDS: Docusate CAP* 100 MG PO SCH (09:32)
[2019-05-18] MEDS: Calcium Polycarbophil TAB* 625 MG PO SCH (09:32)
[2019-05-18] MEDS: Dimethyl Fumarate(NF) 240 MG CAP PO SCH (09:36)
--- NOTE | 2019-05-18 11:52 | DS ---
DATE OF ADMISSION: 05/15/2019. DATE OF DISCHARGE: 05/18/2019. PRIMARY CARE PHYSICIAN: Dr. Petra Gray. OTHER PROVIDER: Dr. Mars Galvan. ATTENDING PHYSICIAN: Dr. Gracie Brown * (dictated by NORI Ortiz). PRIMARY DIAGNOSIS: Probable multiple sclerosis exacerbation. SECONDARY DIAGNOSES: 1. Multiple sclerosis. 2. Neurogenic bladder with straight cath q.i.d. 3. Depression. CONSULTATIONS WHILE IN THE HOSPITAL: Neurology: Impression and plan: Mr. Knight most likely has had a flare of MS that is disabling and we will be admitting him to the hospital. Will touch base with MS specialist. 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 Do not know if we do not know the JATIN virus antibody studies, what the risk is if we add steroids, and I would like to find this out before prescribing steroids. This has been ongoing for three days' time. Trying to reach a doctor at [facility]. STUDIES WHILE IN THE HOSPITAL: MRI brain: Impression: Diffuse involutional change. Again noted is multifocal elevated T2/FLAIR signal in the periventricular and subcortical white matter consistent with demyelinating plaque given history of multiple sclerosis. There is no abnormal enhancement to suggest active inflammation. There has been no significant change compared to December 08, 2012. DISCHARGE MEDICATIONS: Home medications: 1. Acetaminophen 1,000 mg p.o. at bedtime. 2. Baclofen 5 mg p.o. b.i.d. 3. Cholecalciferol 2,000 units p.o. daily. 4. Ibuprofen 200 mg p.o. daily. 5. Calcium Polycarbophil 625 mg p.o. b.i.d. 6. Docusate 100 mg p.o. b.i.d. 7. Sertraline 100 mg p.o. daily. 8. Tecfidera 240 mg p.o. b.i.d. HISTORY OF PRESENT ILLNESS/HOSPITAL COURSE: Mr. Knight is a 63-year-old male with a past medical history of MS, neurogenic bladder and depression who presented to the ER on May 15 with complaints of difficulty with ambulation and balance and increase in falls. For full and complete details, please see the history and physical dictated by NORI Ortiz. In short , the patient presents with these symptoms. He is admitted to the hospital. Neurology is consulted and recommends Solu-Medrol 1,000 mg IV times three days. This has been ordered and completed. MRI of the brain revealed no acute lesion; therefore, Neurology, Dr. Del Angel, recommends MRI of the cervical and thoracic spine to assess for new demyelinating lesions. He notes that these may be done in the outpatient setting. He will follow-up with Dr. Galvan and an appointment will be arranged and the patient will be notified. The patient worked with Physical Therapy throughout his stay. Physical Therapy recommends continued PT to help to restore prior level of function. The patient is agreeable to subacute rehab and has opted for [facility]. He will be discharged today. Currently the patient notes that he is feeling urine leakage and feels he needs a straight cath. He states that his speech has returned to baseline as has movement. He does feel he needs some assistance at times with walking. He uses a walker at baseline and continues to use a walker here. He also uses a right leg brace which is in place. He had a bowel movement yesterday. He denies vision changes, including diplopia, blurred vision. He denies dizziness, lightheadedness, headache, difficulty swallowing, shortness of breath, cough, fever, chills, abdominal pain, nausea, vomiting, diarrhea, constipation. He denies muscle or joint pain or weakness. REVIEW OF SYSTEMS: A 14 point review of systems has been performed and all the pertinent positive and negatives are in the HPI. All other systems are negative. PHYSICAL EXAMINATION: General: Mr. Knight is a well-developed, well- nourished, obese, middle-aged, white male who is sitting up in bed. He appears to be in no acute distress. He appears comfortable. He cooperative and appropriate. HEENT: PERRL, EOMI, nonicteric sclerae. Hearing grossly intact. Oral mucous membranes are moist. The pharynx is clear without lesions, exudate , or erythema. The tongue is at midline. The palate elevated symmetrically. Cardiovascular: Regular rate and rhythm with S1, S2 present without murmurs, rubs, clicks, or gallops. There is no JVD. There is no peripheral edema. Pulmonary: Symmetrical chest expansion without use of accessory muscles. Clear to auscultation bilaterally without rhonchi, wheezes, or rubs. No digital clubbing or cyanosis. Abdomen: Obese. Bowel sounds in all quadrants. Soft, nontender to palpation. Neuro: The patient is awake. He is alert and oriented times three. Cranial nerves are grossly intact. He is able to move all of his extremities with 5/5 muscle strength bilaterally that is equal in upper and lower extremities. DISCHARGE PLAN: Mr. Knight will be discharged to [facility]. MEDICATIONS: No changes. CONDITION ON DISCHARGE: Good. DIET: Resume home diet. ACTIVITY: As tolerated with walker. EDUCATION: 1. Follow-up with primary care provider within four to seven days of discharge from [facility]. 2. Follow-up with Dr. Galvan, neurologist, as scheduled. Office will call with an appointment date and time. Discuss outpatient MRI cervical spine, thoracic, and lumbar spine recommended by Neurology. 3. Return to the ER or nearest hospital if you experience any worsening of symptoms, chest pain or discomfort, dizziness, lightheadedness, loss of consciousness, high fevers, chills, night sweats or any other worrisome signs or symptoms. This is a summarized report of a complex medical history and hospital stay. For further details, please see the entire medical record. TIME SPENT: Approximately 40 minutes were spent on this discharge, greater than half of that time was spent [id number] with the patient discussing discharge plans and instructions. NORI LUCAS [id number]/[facility] #: [id number] [facility]
[2019-05-18 19:35] VITALS: BP 145/63
== END 2019-05-18 12:45 | disposition home or self-care (01) | DRG 60 ==
LOC: ED 14:07 → MED 19:00
PROVIDERS: ADMIT Internal Medicine; ATTEND Internal Medicine
DX: G35 Multiple sclerosis (principal); N31.9 Neuromuscular dysfunction of bladder, unspecified; F32.9 Major depressive disorder, single episode, unspecified; E66.9 Obesity, unspecified; Z86.59 Personal history of other mental and behavioral disorders; Z68.30 Body mass index [BMI] 30.0-30.9, adult; Z79.899 Other long term (current) drug therapy; Z88.8 Allergy status to other drugs, medicaments and biological substances; Z80.3 Family history of malignant neoplasm of breast; Z83.2 Family history of diseases of the blood and blood-forming organs and certain disorders involving the immune mechanism
CPT/HCPCS: 36415; 70553; 80053; 81003; 81015; 82607; 83921; 84439; 84443; 85025; 86711; 96365; 96375; 99284; A9270-GY; A9579; G8978-GP-CK; G8979-GP-CI; J1650; J2930